=== PATIENT | female | born 1980 | race Two or more races ===

== ENCOUNTER 2020-12-06 10:25 | Day surgery (SDC) | payer OTHER ==
[~2020-12-06 10:25] MED LIST: 8 HOUR PAIN RE650 M1 PO; MEDROL4 MG PO; TRAMADOL PO
== END 2020-12-06 22:36 | disposition home or self-care (01) ==
LOC: CIR.AMB 10:25
PROVIDERS: ATTEND Specialist
DX: D06.0 Carcinoma in situ of endocervix (principal); Z20.822 Contact with and (suspected) exposure to COVID-19

== ENCOUNTER 2021-11-16 07:15 | Inpatient (IN) | payer OTHER ==
[~2021-11-16] VITALS: Ht 172.7 cm; Wt 74.8 kg
[2021-11-16] MEDS ORDERED: TYLENOL PO (08:35)
[2021-11-21] MEDS ORDERED: DICLOFENAC POTA50 MG (11:01)
[2021-11-21] MEDS ORDERED: OMEPRAZOLE40 MG (11:01)
[2021-11-21] MEDS ORDERED: TYLENOL EXTRA500 MG PO (11:02)
== END 2021-11-22 17:59 | disposition home or self-care (01) | DRG 743 ==
LOC: O/R 11-21 06:20 → SURH 11-21 07:00 → OB/GYN 11-21 19:23 → O/R 11-21 19:29 → OB/GYN 11-21 19:35 → SURG-SUITE 11-22 10:50
PROVIDERS: ADMIT Specialist; ATTEND Specialist
PROC: 0UT7FZZ Resection of Bilateral Fallopian Tubes, Via Natural or Artificial Opening With Percutaneous Endoscopic Assistance (ICD-10-PCS; 2021-11-21)
PROC: 0UT9FZZ Resection of Uterus, Via Natural or Artificial Opening With Percutaneous Endoscopic Assistance (ICD-10-PCS; principal; 2021-11-21 07:00)
DX: D25.2 Subserosal leiomyoma of uterus (principal); Z20.822 Contact with and (suspected) exposure to COVID-19